=== PATIENT | male | born 1960 | race American Indian/Alaskan Native ===

== ENCOUNTER 2017-07-06 22:11 | Emergency (ER) | payer SELFPAY ==
[2017-07-06 23:29] VITALS: BP 141/80
--- NOTE | 2017-07-07 00:30 | Cat Scan Report ---
FINAL REPORT EXAM: CT HEAD/BRAIN WO CON HISTORY: left headache COMPARISON: None available. TECHNIQUE: Axial images obtained skull base through vertex. FINDINGS: No acute intracranial hemorrhage, midline shift or pathologic extra axial fluid collection. Ventricles and cisterns are normal in size and configuration for the patient's age. Spence-white differentiation preserved. Calvarium grossly intact. Visualized para-nasal sinuses and mastoid air cells are clear. IMPRESSION: No grossly acute intracranial abnormality.
--- NOTE | 2017-07-07 01:40 | Emergency Department Report ---
ED Headache HPI - General Chief Complaint: Headache Stated Complaint: RIGHT SIDED HEAD PAIN Time Seen by Provider: 07/07/17 01:38 - History of Present Illness Allergies/Adverse Reactions: Allergies No Known Allergies Allergy (Unverified 07/06/17 23:29) Home Medications: Ambulatory Orders metFORMIN 500 mg PO BID 07/06/17 ED Review of Systems ROS: Stated complaint: RIGHT SIDED HEAD PAIN Other details as noted in HPI ED Past Medical Hx - Past Medical History Hx Diabetes: Yes - Surgical History Past Surgical History?: No - Social History Smoking Status: Never Smoker Substance Use Type: None - Medications Home Medications: Home Medications Medication Instructions Recorded Confirmed Last Taken Type metFORMIN 500 mg PO BID 07/06/17 07/06/17 Unknown History ED Physical Exam - General Limitations: No Limitations ED Course Vital Signs 07/06/17 23:19 Temperature 98 F Pulse Rate 75 Respiratory 18 Rate Blood Pressure 141/80 O2 Sat by Pulse 97 Oximetry ED Medical Decision Making - Radiology Data Radiology results: report reviewed CT of head: No grossly acute intracranial abnormality. - Medical Decision Making No grossly acute intracranial abnormality. Critical care attestation.: If time is entered above; I have spent that time in minutes in the direct care of this critically ill patient, excluding procedure time. ED Disposition Condition: Stable Referrals: PRIMARY CARE, [Primary Care Provider] - 3-5 Days
== END 2017-07-07 01:45 | disposition left against medical advice (07) ==
LOC: EDBD → ED 22:11
DX: R51 Headache (principal)
CPT/HCPCS: 70450; 82962; 99283